=== PATIENT | male | born 1940 | race Caucasian/White ===

== ENCOUNTER → 2018-11-26 | Outpatient (CLI) | payer OTHER, BC ==
[~2018-11-26] VITALS: Ht 172.7 cm; Wt 87.1 kg
[~2018-11-26] MED LIST: ACETAMINOPHEN325 M1 PO; AMLODIPINE BESY10 MG PO; ASA5UEC PO; CARVEDILOL25 MG PO; FISH OIL 1,001000 M1 PO; GLIPIZIDE 10 MG10 MG PO; GLUCOPHAGE XR750 MG PO; HYDROCODON-ACE1 EAC8 PO; HYDROCODONE-AP1 EAC6 PO; IMDUR120 MG PO; LIPITOR80 MG PO; NITROGLYCERIN0.4 MG SUBLING; NORVASC10 MG PO; OMEGA-31000 M1 PO; PLAVIX 75 MG TA75 MG PO; PRESERVISION T1 EACH PO; RAMIPRIL10 MG PO; RANEXA500 MG PO; TRAMADOL 50 MG50 MG PO; TYLENOL PM EX-1 EACH PO
[2018-11-26 08:21] LABS: HEMATOCRIT 41.5 % (42.0-52.0); HEMOGLOBIN 14.1 gm/dL (14.0-18.0); MCH 32.1 pg (26.0-34.0); MCHC 33.9 g/dL (28.0-37.0); MCV 94.6 fL (80.0-100.0); RBC 4.38 mil/uL (4.50-6.00); RDW 14.4 % (10.5-14.5)
[2018-11-26 08:27] LABS: CALCIUM 8.8 mg/dL (8.5-10.1); CREATININE 0.9 mg/dL (0.7-1.3); POTASSIUM 4.1 mmol/L (3.5-5.1)
[2018-11-26 08:29] VITALS: BP 138/63
--- NOTE | 2018-11-26 17:05 | CATHLAB ---
[facility] [address] [place] [address] INVASIVE PROCEDURE REPORT Name: FALLONANIRUDH Room #: REG Abby#: [id number] ������������� Admission: 11/26/18 ������������� Attend Phys: Porfiroi Morris, Discharge: ��� ������������� ��� Date of : 40 Date of Service: 11/26/18 1705 �� Report #: [id number] �������� ��������������������������������������������[id number] THIS REPORT FOR: //name// APPROVED REPORT Study performed: 11/26/2018 09:43:24 Patient Details Patient Status: Out-Patient Room #: The patient is a 78 year-old male Event Personnel Porfirio Morris Christmas Bell Ringer, Torie Palomino RN RN, Thea Parker, Jesus Manuel Bradford RTR Scrub Procedures Performed Art Access - L femoral artery* 04522 Initial Mod Sed Same Phys/QHP Gr5y 187242 Left Heart Cath Coronaries, Bypass Grafts [id number] LHCCORCABG Hemostasis w/ Mynx Indication Chest pain Procedure Narrative The patient was brought electively to the Cardiac Catheterization Laboratory and was prepped and draped in a sterile manner. The Left Groin^ was infiltrated with 1% Lidocaine subcutaneous anesthesia. A PINNACLE 6FR Sheath #[id number] sheath was inserted into the LFA^. Coronary angiography was performed using coronary diagnostic catheters. The right coronary system was accessed and visualized with a JR 4 catheter. The left coronary system was accessed and visualized with a JL 4 catheter. The left ventricle was accessed and visualized with a Pigtail catheter. Left ventriculogram was performed in CARPENTER projection. Pre-demployment femoral angiogram was performed . Closure device was deployed with a 6 Fr Mynx. The patient tolerated the procedure well and there were no complications associated with the procedure. There was no hematoma. Intraoperative Conscious Sedation Sedation start time: 09:34 Case end Time: 09:55 Fentanyl 100 mcg Versed 2.0 mg Fluoro Time: 4.60 minutes Dose: DAP 8006.00 cGycm2 1091 mGy [facility] [address] [place] [address] INVASIVE PROCEDURE REPORT Name: FALLONANIRUDH Khan [id number] ������������� Admission: 11/26/18 ������������� Attend Phys: Porfirio Morris, Discharge: ��� ������������� ��� Date of : 40 Date of Service: 11/26/18 1705 �� Report #: [id number] �������� ��������������������������������������������[id number] Contrast Type and Amount: Omnipaque 110 ml Hemodynamics The aortic pressure is 128/58 mmHg with a mean of 82 mmHg. The left ventricular pressure is 136/13 mmHg with a mean of mmHg. The left ventricular end diastolic pressure is 24 mmHg. Conclusion #1 normal left ventricular size and inferior basilar akinetic segment ejection fraction 45-50% range #2 the left main is mildly disease giving rise to a circumflex the LAD is flush occluded off the left main #3 the circumflex OM system the first OM previously stented and proximal circumflex previously stented mild in-stent restenosis 50-60% circumflex after the OM takeoff the second OM is collaterally filled and then the distal circumflex fills the PDA off of the occluded dominant right coronary artery this all remains patent and unchanged. #4 the dominant right coronary is occluded the PDA is filled via collateral filling from the left system #5 the TITUS to LAD is intact briskly filling the LAD as it extends around the apex without significant occlusive disease #6 it appears a OM graft is occluded previously noted. #7 PDA graft is occluded Recommendations and plan: Continue aggressive risk factor modification there is no significant change from the prior catheterization of 2018. This stent remains patent that was placed at that setting in the first OM. No intervention indicated. ��������������������������������������������� <ELECTRONICALLY SIGNED> ���������������������������������������� By: Porfirio Morris MD, [facility] ��������������������������������������������� 11/26/18 1705 04 04 Porfirio Morris MD, FACC /INF
--- NOTE | 2018-11-26 21:58 | EKG ---
[address] [address] ELECTROCARDIOGRAM REPORT Name: ANIRUDH LEHMAN [id number] ������������������ Admission: 11/26/18 ������������������ Attend Phys: Porfirio Morris MD, Discharge: ������������������ Date of : 40 Report #: [id number] ����������������������������������������������������������������� [id number] THIS REPORT FOR: //name// [facility] Test Date: 2018-11-26 Test Time: 08:16:41 Pat Name: ANIRUDH LEHMAN Department: Room: Gender: Range Technician: Esthela VALE : 1940 Requested By: Porfirio Morris Order Number: [id number] MD: Phillip Gamino Measurements Intervals [place] Rate: 61 P: 58 MN: 167 QRS: 32 QRSD: 117 T: 33 QT: 444 QTc: 448 Interpretive Statements Sinus rhythm Nonspecific intraventricular conduction delay low voltage, extremity leads Compared to ECG 10/02/2017 06:16:19 Intraventricular conduction delay now present No significant ECG changes Electronically Signed On 11-26-2018 21:57:59 CDT by Phillip Gamino [email or web address] ��������������������������������������������� <ELECTRONICALLY SIGNED> ���������������������������������������� By: Phillip Gamino MD ��������������������������������������������� 11/26/18 2157 5 5 Phillip Gamino MD /EPI
== END | disposition home or self-care (01) ==
LOC: CATH 07:41
PROVIDERS: Internal Medicine Cardiovascular Disease
DX: I25.810 Atherosclerosis of coronary artery bypass graft(s) without angina pectoris (principal); I10 Essential (primary) hypertension; E78.5 Hyperlipidemia, unspecified; E11.9 Type 2 diabetes mellitus without complications; I42.9 Cardiomyopathy, unspecified; Z95.1 Presence of aortocoronary bypass graft; Z87.891 Personal history of nicotine dependence; Z90.49 Acquired absence of other specified parts of digestive tract; Z98.890 Other specified postprocedural states; Z88.0 Allergy status to penicillin; Z88.2 Allergy status to sulfonamides; Z79.82 Long term (current) use of aspirin; Z79.899 Other long term (current) drug therapy

== ENCOUNTER → 2019-01-06 | Outpatient (CLI) | payer OTHER, BC ==
[~2019-01-06] VITALS: Ht 172.7 cm; Wt 86.2 kg
[~2019-01-06] MED LIST changes: +ASPIR 8181 MG PO; +FISH OIL 1,2001 EACH PO; +GLIPIZIDE XL2.5 MG PO; +RANEXA1000 MG PO; +[UNRECOGNIZED DRUG - OTHER] PO
--- NOTE | 2019-01-06 11:20 | P ---
[facility] [place] [address] PROCEDURE REPORT Name: FALLONANIRUDH Aj Room #: REG [facility]#: [id number] Admission: 01/06/19 ������������������ Attend Phys: Fuentes Boo MD Discharge: ������������������ Date of : 40 Report #: [id number] THIS REPORT FOR: //name// CC: Vicente Boo DATE OF SERVICE: 01/06/2019 OUTPATIENT COLONOSCOPY REPORT BRIEF HISTORY: The patient is a 78-year-old male with a history of colon polyps. He also has a family history of colon cancer and mother had colon cancer in mid 60s. PREOPERATIVE DIAGNOSIS: High risk screening colonoscopy. POSTOPERATIVE DIAGNOSES: 1. Diminutive colon polyp. 2. Diminutive rectal polyp. 3. Diverticulosis coli. MEDICATIONS: Deep sedation with propofol per anesthesia. SPECIMENS: 1. Polyp from splenic flexure. 2. Rectal polyp. ESTIMATED BLOOD LOSS: 3 mL. PROCEDURE: Colonoscopy to cecum and terminal ileum with biopsy. FINDINGS: Prior to propofol sedation, procedure of colonoscopy was discussed with the patient as well as potential risks and its complications. He indicates he understands and desires to proceed. DESCRIPTION OF PROCEDURE: With the patient in left lateral decubitus position, digital examination was completed, which revealed no abnormalities. Subsequently, the Olympus video colonoscope was introduced into the rectum, advanced under direct vision to the cecum. Done with minimal difficulty. The cecum was identified by the ileocecal valve and the appendiceal orifice. I was able to visualize the distal segment of the terminal ileum, which was inspected and noted to be unremarkable. At that point, the scope was slowly withdrawn and careful circumferential views obtained. Upon slow withdrawal of the scope, there were noted to be some limitations of the prep, particularly in the proximal colon. There was some coating in mucosa with stool material. Much of [facility] [address] [place] [address] PROCEDURE REPORT Name: ANIRUDH LEHMAN Room #: REG RITU Mora#: [id number] Admission: 01/06/19 ������������������ Attend Phys: Fuentes Boo MD Discharge: ������������������ Date of : 40 Report #: [id number] the mucosa could be seen, but not all the mucosa could be well visualized. As we withdrew the scope, we had to lavage and suction from the colon, and fairly good views were obtained in the left colon. At the splenic flexure, a diminutive polyp was seen and removed with biopsy forceps. The scope was further withdrawn, and in the sigmoid colon, there was moderate diverticular disease without endoscopic evidence of diverticulitis. The scope was withdrawn in the rectum, and upon retroflexion, a diminutive polyp was seen just above the anal verge. This was removed with biopsy forceps. No other abnormalities were seen. Scope was withdrawn. The patient tolerated the procedure well. CONDITION OF THE PATIENT UPON DISCHARGE: Following procedure, the patient drowsy, aroused, conversant and will be discharged home when fully ambulatory. INSTRUCTIONS TO THE PATIENT AND FAMILY AT THE TIME OF DISCHARGE: Two diminutive polyps identified and removed as described above. We will follow up on the path. However, since there were some limitations of the prep and especially in view of family history and personal history, I would suggest he return in 3 years for high risk screening colonoscopy. Since there are some limitations of prep, I suggest he increase fiber in his diet and use MiraLax if needed for management of constipation. He will otherwise return to the care of Dr. Vicente Blanchard and return to see me as needed. Last colonoscopy was a little more than 3 years ago. Withdrawal time from the cecum was 19 minutes and 5 seconds. ��������������������������������������������� <ELECTRONICALLY SIGNED> ���������������������������������������� By: Fuentes Boo MD ��������������������������������������������� 01/06/19 1120 0811 0832 Fuentes Boo MD /nt
--- NOTE | 2019-01-07 14:06 | PATH ---
[facility] [address] [place] [address] PATHOLOGY RPT PROCEDURE Name: WERNER LEHMANITALO Rocha Room #[id number] ������������������ Admission: 01/06/19 ������������������ Date of : 40 Discharge: Report #: [id number] Path Case #: [id number] [facility] Accession Number: [id number] . 01 Material submitted: . PART A: splenic flexure - POLYP AT SPLENIC FLEXURE PART B: rectum - RECTAL POLYP . 01 Clinical history: . History of polyps Diverticulosis, colon polyps . 02 Diagnosis: A. Polyp, at splenic flexure, endoscopic biopsy: - Tubular adenoma. - Negative for high grade dysplasia. . B. Polyp, rectal polyp, endoscopic biopsy: - Hyperplastic polyp. - Negative for dysplasia. (IUV/db; 01/07/2019) LBQ/01/07/2019 . 02 Electronically signed: . Dina Pisano MD, Pathologist NPI- [id number] . 01 Gross description: . A. The specimen is received in formalin, labeled "Anirudh Lehman BX of polyp at splenic flexure" and consists of 4 fragments of pink-bailey tissue measuring between 0.1 x 0.1 cm and 0.5 x 0.2 cm which are entirely submitted in A1. . B. The specimen is received in formalin, labeled "Anirudh Lehman BX of rectal polyp" and consists of a fragment of pink-bailey tissue measuring 0.2 x 0.2 x 0.2 cm which is entirely submitted in B1. (SDY; 01/06/2019) SYU/SYU . 02 Pathologist provided ICD-10: D12.3, K62.1 . 02 CPT . 143975, 024394 Specimen Comment: A courtesy copy of this report has been sent to Specimen Comment: [phone], . Specimen Comment: Report [place] [address] PATHOLOGY RPT PROCEDURE Name: ANIRUDH LEHMAN Room #: [facility] [id number] ������������������ Admission: 01/06/19 ������������������ Date of : 40 Discharge: Report #: [id number] Path Case #: [id number] Performed at: 01 [facility] Peyton Delgado [address], [place] [id number] MD Mehran Downing MD Phone: [phone] Performed at: [address] [id number] MD Dina Pisano MD Phone: [phone]
== END | disposition home or self-care (01) ==
LOC: GI 06:26
DX: Z12.11 Encounter for screening for malignant neoplasm of colon (principal); Z86.010 Personal history of colon polyps; Z80.0 Family history of malignant neoplasm of digestive organs; D12.3 Benign neoplasm of transverse colon; K62.1 Rectal polyp; K57.30 Diverticulosis of large intestine without perforation or abscess without bleeding; I10 Essential (primary) hypertension; I25.2 Old myocardial infarction; E11.9 Type 2 diabetes mellitus without complications; I25.10 Atherosclerotic heart disease of native coronary artery without angina pectoris; E78.5 Hyperlipidemia, unspecified; Z95.1 Presence of aortocoronary bypass graft; Z90.49 Acquired absence of other specified parts of digestive tract; Z87.891 Personal history of nicotine dependence; Z98.890 Other specified postprocedural states; Z79.899 Other long term (current) drug therapy
CPT/HCPCS: 62110; 62900

== ENCOUNTER → 2019-08-24 | Outpatient (CLI) | payer OTHER, BC | LOC: SJCVC 09:45 | DX: R94.31 Abnormal electrocardiogram [ECG] [EKG] (principal); I25.810 Atherosclerosis of coronary artery bypass graft(s) without angina pectoris; E11.9 Type 2 diabetes mellitus without complications; I10 Essential (primary) hypertension; I25.5 Ischemic cardiomyopathy; I65.23 Occlusion and stenosis of bilateral carotid arteries; I35.0 Nonrheumatic aortic (valve) stenosis; E78.00 Pure hypercholesterolemia, unspecified; E78.5 Hyperlipidemia, unspecified; Z95.1 Presence of aortocoronary bypass graft; Z87.891 Personal history of nicotine dependence; Z79.82 Long term (current) use of aspirin; Z79.899 Other long term (current) drug therapy ==

== ENCOUNTER → 2020-04-03 | Outpatient (CLI) | payer OTHER, BC | LOC: SJCVCIMAG 08:55 | PROVIDERS: ATTEND Internal Medicine Cardiovascular Disease | DX: I08.0 Rheumatic disorders of both mitral and aortic valves (principal); R94.31 Abnormal electrocardiogram [ECG] [EKG]; I49.3 Ventricular premature depolarization; I25.709 Atherosclerosis of coronary artery bypass graft(s), unspecified, with unspecified angina pectoris; E11.9 Type 2 diabetes mellitus without complications; I25.5 Ischemic cardiomyopathy; I65.23 Occlusion and stenosis of bilateral carotid arteries; E78.00 Pure hypercholesterolemia, unspecified; Z95.1 Presence of aortocoronary bypass graft; Z79.899 Other long term (current) drug therapy; Z87.891 Personal history of nicotine dependence ==

== ENCOUNTER → 2020-11-07 | Outpatient (CLI) | payer OTHER, BC | LOC: SJCVCIMAG 09:21 | PROVIDERS: ATTEND Internal Medicine Cardiovascular Disease | DX: I49.3 Ventricular premature depolarization (principal); I25.810 Atherosclerosis of coronary artery bypass graft(s) without angina pectoris; E78.00 Pure hypercholesterolemia, unspecified; E11.9 Type 2 diabetes mellitus without complications; I35.0 Nonrheumatic aortic (valve) stenosis; I65.23 Occlusion and stenosis of bilateral carotid arteries; I25.5 Ischemic cardiomyopathy; E78.5 Hyperlipidemia, unspecified; Z95.5 Presence of coronary angioplasty implant and graft; Z87.891 Personal history of nicotine dependence; Z79.82 Long term (current) use of aspirin; Z79.899 Other long term (current) drug therapy; Z95.1 Presence of aortocoronary bypass graft; Z88.2 Allergy status to sulfonamides; Z88.0 Allergy status to penicillin; Z88.1 Allergy status to other antibiotic agents ==

== ENCOUNTER → 2021-02-22 | Outpatient (CLI) | payer OTHER, BC | LOC: SJCVCIMAG 09:08 | PROVIDERS: ATTEND Internal Medicine Cardiovascular Disease | DX: I65.23 Occlusion and stenosis of bilateral carotid arteries (principal) ==

== ENCOUNTER → 2021-04-12 | Outpatient (CLI) | payer OTHER, BC | LOC: SJCVCIMAG 08:52 | PROVIDERS: ATTEND Internal Medicine Cardiovascular Disease | DX: R94.31 Abnormal electrocardiogram [ECG] [EKG] (principal); I08.3 Combined rheumatic disorders of mitral, aortic and tricuspid valves; I49.3 Ventricular premature depolarization; I45.89 Other specified conduction disorders; I42.9 Cardiomyopathy, unspecified; I25.810 Atherosclerosis of coronary artery bypass graft(s) without angina pectoris; I25.5 Ischemic cardiomyopathy; I65.23 Occlusion and stenosis of bilateral carotid arteries; I10 Essential (primary) hypertension; E78.2 Mixed hyperlipidemia; E11.9 Type 2 diabetes mellitus without complications; Z82.49 Family history of ischemic heart disease and other diseases of the circulatory system; Z95.1 Presence of aortocoronary bypass graft; Z79.82 Long term (current) use of aspirin; Z79.84 Long term (current) use of oral hypoglycemic drugs; Z79.899 Other long term (current) drug therapy; Z88.0 Allergy status to penicillin; Z88.2 Allergy status to sulfonamides; Z88.8 Allergy status to other drugs, medicaments and biological substances; Z87.891 Personal history of nicotine dependence ==